=== PATIENT | female | born 1955 | race Caucasian/White ===

== ENCOUNTER 2020-08-27 14:14 | Outpatient (CLI) | payer OTHER, SELFPAY ==
--- NOTE | ~2020-08-27 | XR_ITS ---
[XR ribs RT 2V w CXR 2V ] INDICATION: Right rib pain after recent fall TECHNIQUE: Frontal projection of the upper right ribs, frontal projection of the lower right ribs, ob lique projection of all the right ribs, frontal inspiratory chest x-ray for interpretation. FINDINGS: There are no displaced rib fractures identified. There are no soft tissue abnormality see n. The lungs are clear. IMPRESSION: 1:No displaced rib fractures. Reviewed, dictated and finalized at location B. MELTER
--- NOTE | ~2020-08-27 | XR_ITS ---
EXAMINATION: XR shoulder RT min 2V DATE: 08/27/2020 15:15 INDICATION: Right shoulder pain. TECHNIQUE: 4 views of right shoulder were obtained. COMPARISON: None. FINDINGS: Bone alignment is normal. No fracture. There is mild osteoarthritis of glenohumeral joint a nd severe osteoarthritis of acromioclavicular joint. There is mild scarring at right lung apex. IMPRESSION: 1. Polyarticular osteoarthritis. Reviewed, dictated and finalized at location A. LE ASSEMBLER
== END 2020-08-27 14:15 | disposition home or self-care (01) ==
LOC: CHSIMG 14:17
PROVIDERS: PCP Physician Assistant; Visit Provider Physician Assistant
DX: M25.511 Pain in right shoulder (principal); R07.81 Pleurodynia
CPT/HCPCS: 71046; 71100; 73030

== ENCOUNTER 2020-09-20 12:20 | Outpatient (CLI) | payer OTHER, SELFPAY ==
--- NOTE | ~2020-09-20 | MM_ITS ---
EXAMINATION: MM screening dedra RT w nitin HISTORY: Screening TECHNIQUE: Craniocaudal and mediolateral oblique 3-D tomosynthesis images were obtained and synthetic 2-D images were generated. CAD analysis was submitted and interpreted. COMPARISON: No prior mammogram is available for comparison at this institution. BREAST PARENCHYMAL COMPOSITION: The breasts are heterogeneously dense, which may obscure small masses . FINDINGS: There is a 6 mm mass in the mid lateral aspect of the right breast, middle third. There are benign right breast calcifications. The left breast is surgically absent. IMPRESSION: 1. Right breast mass mid lateral aspect of the breast. 2. Comparison no previous outside mammograms recommended to assess stability. BI-RADS Category 0: Incomplete: Needs additional imaging evaluation. Reviewed, dictated and finalized at location A. COURIER
--- NOTE | ~2020-09-20 | DEXA_ITS ---
Bone Density Report Name: Dora Painting Age: 65 Sex: Female Ethnicity: White Date of : 1955 Indication: osteopenia; monitoring treatment; height loss; cancer; rheumatoid arthritis; Referring Provider: Guillaume, Alpesh Titus Study: Bone densitometry was performed. Exam Date: September 20, 2020 Accession number: [id number] Bone Density: Region BMD T-score Z-score Classification AP Spine(L1-L4) 0.730 -2.9 -1.2 Osteoporosis Femoral Neck (Left) 0.558 -2.6 -1.2 Osteoporosis Total Hip (Left) 0.737 -1.7 -0.5 Osteopenia Femoral Neck (Right) 0.623 -2.0 -0.6 Osteopenia Total Hip (Right) 0.685 -2.1 -1.0 Osteopenia Femoral Neck Mean 0.591 -2.3 -0.9 Osteopenia Total Hip Mean 0.711 -1.9 -0.7 Osteopenia World Health Organization criteria for BMD impression classify patients as: Normal (T-score at or above -1.0), Osteopenia (T-score between -1.0 and -2.5), or Osteoporosis (T-score at or below -2.5). 10-year Fracture Risk: FRAX not reported because: Some T-score for Spine Total or Hip Total or Femoral Neck at or below -2.5 Treated for osteoporosis Previous Exams: Region Exam Age BMD T-score BMD Change BMD Change Date g/cm2 vs Baseline vs Previous Total Hip(Left) 09/20/2020 65 0.737 -1.7 0.017 (2.4%) 0.017 (2.4%) 09/20/2020 65 0.720 -1.8 *Denotes significance at 95% confidence level, LSC for Total Hip = 0.027 g/cm2 Clinical Information Provided by Patient: Smokes Has rheumatoid arthritis Is being treated for osteoporosis Has used the following medications: Miacalcin (i.e. calcitonin), Vitamin D, Calcium Has the following medical conditions: Cancer Patient maximum height was 64 No regular weight bearing exercise Does not regularly consume dairy products Drinks caffeinated beverages Onset of menses at age 13 Number of children 4 Impression: The patient has osteoporosis, based on the Total Spine T-score. The patient has risk factors, including: smoking. No significant bone loss was observed. Discussion: PATIENT UNDER TREATMENT WITH NO SIGNIFICANT BMD LOSS SINCE LAST EXAM. In an untreated patient, BMD typically declines with age. A lack of decline or gain is usually a sign that treatment is efficacious and fracture risk is reduced. It is important to ask patients whether they are taking their medications and to encourage continued and appropriate compliance with their osteoporosis therapies to reduce fracture risk. It is also important to review their risk factors and encourage appropriate calcium and aiden
== END 2020-09-20 12:21 | disposition home or self-care (01) ==
LOC: CHSIMG 12:24
PROVIDERS: PCP Physician Assistant; Visit Provider Family Medicine
DX: Z12.31 Encounter for screening mammogram for malignant neoplasm of breast (principal); M81.0 Age-related osteoporosis without current pathological fracture
CPT/HCPCS: 77063; 77067; 77080

== ENCOUNTER 2020-10-08 10:17 | Outpatient (CLI) | payer OTHER, SELFPAY ==
--- NOTE | ~2020-10-08 | MMUS_ITS ---
EXAMINATION: MM diagnostic dedra RT w nitin, US breast RT limited HISTORY: Follow-up right breast asymmetries TECHNIQUE: Additional 3-D tomosynthesis images of the right breast were performed and synthetic 2-D i mages were generated. CAD analysis was submitted and interpreted. High resolution Limited right breas t ultrasound was performed. COMPARISON: 09/20/2020 BREAST PARENCHYMAL COMPOSITION: Breast composed of scattered areas of fibroglandular density. FINDINGS: MAMMOGRAPHIC FINDINGS: There are multiple focal asymmetries laterally in the right breast which are obscured by fibroglandul ar tissue. ULTRASOUND: Limited left breast ultrasound: At 6:00, 1 cm from the nipple there is a 3 mm cyst. At 6:00, 1 cm fro m the nipple there is a 2 mm cyst. At 8:00, 2 cm from the nipple there is a 5.5 mm cyst. At 10:00, 6 cm from the nipple, there is a 5 mm intramammary lymph node. At 10:00, 6 cm from the nipple there is an oval hypoechoic mass measuring 3 mm without posterior features or internal vascularity, likely rylan ign. At 9:00, 6 cm from the nipple there is a small hypoechoic mass with internal vascularity and ech ogenic hilum, likely intramammary lymph node. At 10:00, 6 cm from the nipple, there is an irregular s haped hypoechoic mass measuring 3.5 mm without internal vascularity or posterior features, possibly i ntramammary lymph node. IMPRESSION: 1. Probable benign right breast masses as described above. 2. Recommend 6 month follow-up diagnostic right mammogram and ultrasound BI-RADS category 3, probably benign findings. Reviewed, dictated and finalized at location A. ECTOR FIREARMS IMPRESSION: 1. Probable benign right breast masses as described above. 2. Recommend 6 month follow-up diagnostic right mammogram and ultrasound BI-RADS category 3, probably benign findings.
== END 2020-10-08 10:18 | disposition home or self-care (01) ==
PROVIDERS: PCP Physician Assistant; Visit Provider Physician Assistant
DX: R92.8 Other abnormal and inconclusive findings on diagnostic imaging of breast (principal)
CPT/HCPCS: 76642; 77061; 77065; G0279

== ENCOUNTER 2021-05-05 08:29 | Outpatient (CLI) | payer OTHER, SELFPAY ==
--- NOTE | ~2021-05-05 | MMUS_ITS ---
EXAMINATION: MM diagnostic dedra RT w nitin, US breast RT limited HISTORY: Follow-up right breast masses TECHNIQUE: Additional 3-D tomosynthesis images of the right breast were performed and synthetic 2-D i mages were generated. CAD analysis was submitted and interpreted. High resolution Limited right breas t ultrasound was performed. COMPARISON: Comparison to multiple prior studies sequentially, with oldest reviewed study dated 08/25. BREAST PARENCHYMAL COMPOSITION: Breast composed of scattered areas of fibroglandular density. FINDINGS: MAMMOGRAPHIC FINDINGS: Stable 4 mm mass lower outer quadrant of the right breast, middle third. No new masses, calcification s or architectural distortion to suggest malignancy. ULTRASOUND: Limited right breast ultrasound: At 6:00, 1 cm from the nipple there is a cluster of microcysts measu ring 3 mm. At 8:00, 2 cm from the nipple, there is a 6 mm cyst. At 9:00, 3 cm from the nipple, there is a 4 mm intramammary lymph node. At 9:00, 6 cm from the nipple, there is an oval hypoechoic mass wi th echogenic hilum measuring 3 mm, likely benign intramammary lymph node. At 10:00, 6 cm from the nip ple, there is a cluster of microcysts measuring 5 mm. At 10:00, 5 cm from the nipple, there is a hypo echoic mass measuring up to 3 mm, likely a cluster of microcysts. At 10:00, 5 cm from the nipple, the re is a hypoechoic mass, also likely a cluster of microcysts measuring up to 5 mm. At 11:00, 1 cm fro m the nipple there is a 2 mm cyst. IMPRESSION: 1. Probable benign right breast masses. 2. Recommend 6 month follow-up bilateral mammogram and limited right breast ultrasound. BI-RADS category 3, probably benign findings. Reviewed, dictated and finalized at location A. IMPRESSION: 1. Probable benign right breast masses. 2. Recommend 6 month follow-up bilateral mammogram and limited right breast ult rasound. BI-RADS category 3, probably benign findings.
== END 2021-05-05 08:30 | disposition home or self-care (01) ==
PROVIDERS: PCP Physician Assistant; Visit Provider Physician Assistant
DX: R92.8 Other abnormal and inconclusive findings on diagnostic imaging of breast (principal)
CPT/HCPCS: 76642; 77061; 77065; G0279